=== PATIENT | male | born 1935 | race Caucasian/White ===

== ENCOUNTER 2016-08-23 16:51 | Emergency (ER) | payer OTHER ==
--- NOTE | 2016-08-23 18:15 | DIAGNOSTIC IMAGING REPORT ---
PROCEDURE: XR CHEST 2 VIEW INDICATION: COUGH TECHNIQUE: PA and lateral view. COMPARISON: Chest x-ray 12/01/2015. FINDINGS: There are mild bilateral interstitial markings which have marked improved but are more confluent in the left base, possibly a superimposed infiltrate. Cardiovascular structures are normal. Bony thorax is unremarkable. IMPRESSION: 1. Mild bilateral parenchymal scarring, more confluent in the left base, which could represent a superimposed infiltrate.
--- NOTE | 2016-08-23 18:45 | ED ORDER SUMMARY ---
..... Patient: GAETANO WARD OrderSheet [facility] VisitID: [id number] [place] [address] 80y, M Registration Date/Time: 08/23/2016 ORDER SHEET Weight: 63.7 kg (stated) Allergies: Amoxicillin, Sulfa Antibiotics GENERAL ORDERS: Chest 2V Urgent (17:40 08/23/2016 DDean R.N. per protocol) (Ack 17:41 Saida) (18:15 DDean R.N.) CBC w Diff Urgent (18:39 08/23/2016 Brijesh CHRIS) (Ack 18:43 Saida) (19:07 DDean R.N.) MEDICATION ORDERS: IV FLUIDS: IV Saline Lock (18:15 08/23/2016 DDean R.N. per protocol) (18:16 DDean R.N.) ORDER SHEET NOTES: [Electronically signed by Simona Richard R.N. (19:17 08/23/2016)] [Electronically signed by Shannen Gutierrez MD (21:56 08/23/2016)] [Electronically locked/signed by Simona Richard R.N. (19:17 08/23/2016)]
--- NOTE | 2016-08-23 18:45 | ED ORDER SUMMARY ---
..... Patient: GAETANO WARD OrderSheet [facility] VisitID: [id number] [place] [address] 80y, M Registration Date/Time: 08/23/2016 ORDER SHEET Weight: 63.7 kg (stated) Allergies: Amoxicillin, Sulfa Antibiotics GENERAL ORDERS: Chest 2V Urgent (17:40 08/23/2016 DDean R.N. per protocol) (Ack 17:41 Saida) (18:15 DDean R.N.) CBC w Diff Urgent (18:39 08/23/2016 Brijesh CHRIS) (Ack 18:43 Saida) (19:07 DDean R.N.) MEDICATION ORDERS: IV FLUIDS: IV Saline Lock (18:15 08/23/2016 DDean R.N. per protocol) (18:16 DDean R.N.) ORDER SHEET NOTES: [Electronically signed by Simona Richard R.N. (19:17 08/23/2016)] [Electronically signed by Shannen Gutierrez MD (21:56 08/23/2016)] [Electronically locked/signed by Simona Richard R.N. (19:17 08/23/2016)]
--- NOTE | 2016-08-23 18:45 | ED NURSING NOTES ---
Clinical Report - Nurses [facility] [address] [place] [address] 08/23/2016 16:54 Patient: GAETANO WARD TRIAGE Triage time 1703. Acuity: LEVEL 3. Chief Complaint: SHORTNESS OF BREATH and (states he has chronic breathing issues, has been on antibiotics x 3 days, but feels like it is). --17:24 Simona Richard R.N. 17:17 08/23/16. BP: 106/68. HR: 91. RR: 24. O2 saturation: 95% on room air. Temp: 98.7 F. Pain level now: 10/30. --17:24 Simona Richard R.N. Weight: 63.7 kg stated. Height/Length: 72 inches Per Patient. BMI: 19.1. --17:23 Simona Richard R.N. Medications Aricept Oral 5 mg, daily. --17:18 Simona Richard R.N. Aspirin Oral (Tablet 81 mg) 1 tablet, daily. Carafate Oral 1 gm, 4x a day. Minocycline Hcl Oral (Capsule 100 mg) 1 capsule, bid. Mirapex Oral 0.25 mg, at bedtime. Nitroglycerin Translingual, as needed. Nuvigil Oral (Tablet 150 mg) 1 tablet. Paxil Oral 20 mg, at bedtime. Potassium Oral 20meq, daily. Protonix Oral 40 mg, daily. Simvastatin Oral (Tablet 40 mg) 1 tablet, daily. --17:18 Simona Richard R.N. Azithromax on 3rd day of meds . --17:18 Simona Richard R.N. Lisinopril Oral, daily. --17:24 Simona Richard R.N. The following entry was struck and corrected by Simona Richard R.N., 17:24 (08/23/16) Reason for correction - other(correction). <<STRICKEN ENTRY-- Aricept Oral 5 mg, daily. --17:18 Simona Richard R.N. --END STRIKE>> The following entry was struck by Simona Richard R.N., 17:24 (08/23/16) Reason - wrong value. <<STRICKEN ENTRY-- Lipitor Oral, daily. --17:18 Simona Richard R.N. --END STRIKE>>. Allergies Amoxicillin. Sulfa Antibiotics. --17:18 Simona Richard R.N. History Arrived by private vehicle. Historian: patient. Accompanied by spouse. Primary physician (Eh). The patient has had a cough, wheezing and chest pain. SOCIAL HX: Smoker- current status unknown (quit 45 years ago , was a 1ppd smoker for 10+ years). No alcohol use or drug use. --17:24 Simona Richard R.N. PROBLEMS: Near Syncope. Diffuse Lewy body disease. Restless Legs Syndrome. Myocardial Infarction. MRSA Infection. Chronic bronchitis. --17:19 Simona Richard R.N. ADDITIONAL SURGERIES: Appendectomy. Cardiac Catheterization. Tonsillectomy. --17:19 Simona Richard R.N. Interventions ID band on patient. To treatment room. --17:24 Simona Richard R.N. PHYSICAL ASSESSMENT 17:15. Ambulatory to room. Patient gowned. GENERAL / NEURO / PSYCH: Alert. Oriented X 4. Appears anxious. RESPIRATORY: Moderate respiratory distress. The patient can speak in full sentences. Cough productive of thick, yellow sputum. Chest wall tenderness. CVS: Capillary refill less than 2 seconds. GI / : Abdomen soft. SKIN: Skin is warm and dry. --17:26 Simona Richard R.N. NURSING PROGRESS NOTES 17:03. Patient gowned. Head of bed elevated. Reassurance given. Patient identifiers checked. Call light placed in reach. Side rails up. Bed placed in lowest position. Patient ready for evaluation- chart flagged. --17:25 Simoan Richard R.N. 17:47 08/23/16. Patient transported to radiology by stretcher with tech. --17:47 Simona Richard R.N. 17:50 08/23/2016 Site #1 started via IV in the left forearm with an 20g angiocath, with aseptic technique and good blood return; one attempt. Blood drawn: rainbow set and cultures x1. Labeled in the presence of the patient and sent to the lab. Saline lock flushed with 10 mL saline. --18:13 Simona Richard R.N. 17:52. Patient returned from radiology by stretcher with tech. --18:15 Simona Richard R.N. 17:55. ( IV start, lab drawn,. resting quietly with at bedside.). --19:06 Simona Richard R.N. 18:30 given warm blanket, waiting on lab results. --19:06 Simona Richard R.N. 18:45 08/23/2016 Site #1 removed upon discharge. Bandaid applied. --19:08 Simona Richard R.N. 18:45 08/23/2016 IV Saline Lock Drip IV Discontinued: bag #1 STOPPED upon discharge. Total amount infused: 0 mL. IV patency established. IV site checked: no pain, redness, or swelling. IV flushed thoroughly. --19:08 Simona Richard R.N. DISPOSITION / DISCHARGE 18:56. Condition at departure: improved and stable. No learning barriers present. Discharge instructions provided and reviewed with the patient and spouse. Patient and spouse verbalized understanding. Written instructions provided in Thai. The patient was discharged home and accompanied by spouse. He left the Emergency Department ambulatory and via private vehicle. Spouse driving. --19:03 Simona Richard R.N. 19:01 08/23/16. BP: 103/53. HR: 75. RR: 18. O2 saturation: 98% on room air. Temp: deferred. Pain level now: 06/30. --19:03 Simona Richard R.N. Locked/Released at 08/23/2016 19:17 by Simona Richard R.N.
--- NOTE | 2016-08-23 18:45 | ED CLINICAL REPORT ---
Clinical Report - Physicians/Mid Levels [facility] [address] [place] [address] 08/23/2016 16:54 Patient: GAETANO WARD Time Seen: 17:09. Arrived- By private vehicle. Historian- patient. HISTORY OF PRESENT ILLNESS Chief Complaint: CHEST DISCOMFORT. Cough. At its maximum, severity described as mild. When seen in the E.D., it was almost gone. Modifying factors- worsened by cough and deep breaths. Not relieved by anything. This started several days ago and is still present. Onset during coughing. It is described as tightness and it is described as located in the central chest area. No nausea, vomiting, difficulty breathing or diaphoresis. Similar symptoms previously: Recent medical care: The patient was seen recently at another facility in a clinic. ( Patient was started on Zithromax 3 days ago; however he does not feel that he is improved much since.). REVIEW OF SYSTEMS No fever, chills, pedal edema, calf pain or fainting episodes. No headache, sore throat, blurred vision, abdominal pain or black stools. No difficulty with urination, skin rash, enlarged lymph nodes, joint pain or bloody stools. The patient has had a cough. All systems otherwise negative, except as recorded above. PAST HISTORY Problems: Near Syncope. Diffuse Lewy body disease. Restless Legs Syndrome. Myocardial Infarction. MRSA Infection. Chronic bronchitis. Additional Surgeries: Appendectomy. Cardiac Catheterization. Tonsillectomy. Medications: Lisinopril Oral, daily. Azithromax on 3rd day of meds . Aspirin Oral (Tablet 81 mg) 1 tablet, daily. Carafate Oral 1 gm, 4x a day. Minocycline Hcl Oral (Capsule 100 mg) 1 capsule, bid. Mirapex Oral 0.25 mg, at bedtime. Nitroglycerin Translingual, as needed. Nuvigil Oral (Tablet 150 mg) 1 tablet. Paxil Oral 20 mg, at bedtime. Potassium Oral 20meq, daily. Protonix Oral 40 mg, daily. Simvastatin Oral (Tablet 40 mg) 1 tablet, daily. Aricept Oral 5 mg, daily. Allergies: Amoxicillin. Sulfa Antibiotics. SOCIAL HISTORY Former smoker. No alcohol use or drug use. ADDITIONAL NOTES The nursing notes have been reviewed. PHYSICAL EXAM Vital Signs: 08/23/2016 17:17 BP: 106/68. HR: 91. RR: 24. O2 saturation: 95%. Temp: 98.7 F. Pain level now: 7/10. Have been reviewed. Appearance: Alert. No acute distress. (Patient answers questions appropriately.). Eyes: Pupils equal, round and reactive to light. Eyes normal inspection. ENT: Nose normal. Neck: Normal inspection. CVS: Normal heart rate and rhythm. Heart sounds normal. Pulses normal. Respiratory: No respiratory distress. Breath sounds normal. Abdomen: Soft and nontender. Back: Normal external inspection. Skin: Skin warm and dry. Normal skin color. No rash. Normal skin turgor. Extremities: Extremities exhibit normal ROM. No lower extremity edema. Neuro: No motor deficit. No sensory deficit. (Patient is grossly oriented.). LABS, X-RAYS, AND EKG Chest X-ray: No acute disease. Normal lung markings present. Normal heart size. Mediastinum normal. Great vessels normal. Soft tissues normal. No infiltrate. No fracture. No bony lesion present. Views: PA and lateral. Technique: good. The X-rays were independently viewed by me and interpreted contemporaneously by me. Prior films were not available for comparison. Pulse Oximetry: 08/23/2016 17:17 O2 saturation: 95%. (FIO2 - room air). Interpretation: normal. PROGRESS AND PROCEDURES Course of Care: Patient was worked up at the chest x-ray which was unremarkable for any acute pathology. I did discuss with the patient that he has only been through half of his antibiotic course and that he most likely needs more time on the antibiotics. Patient's has requested a prescription for cough suppressant and I will give the patient this as well. No emergent condition has been identified. Patient and spouse counseled in person regarding the patient's stable condition, test results, diagnosis and need for follow-up. Concerns were addressed. Old medical records reviewed. Disposition: Discharged. Condition: stable and improved. CLINICAL IMPRESSION Acute bacterial bronchitis associated with chronic obstructive pulmonary disease. Stable COPD. INSTRUCTIONS Warnings: GENERAL WARNINGS: Return or contact your physician immediately if your condition worsens or changes unexpectedly, if not improving as expected, or if other problems arise. Your Current Medications: CONTINUE TAKING THE FOLLOWING MEDICATIONS: Aricept Oral : 5 mg daily. Aspirin Oral : Tablet 81 mg, 1 tablet daily. Azithromax on 3rd day of meds *. Carafate Oral : 1 gm 4x a day. Lisinopril Oral : daily. Minocycline Hcl Oral : Capsule 100 mg, 1 capsule bid. Mirapex Oral : 0.25 mg at bedtime. Nitroglycerin Translingual : prn. Nuvigil Oral : Tablet 150 mg, 1 tablet. Paxil Oral : 20 mg at bedtime. Potassium Oral : 20meq daily. Protonix Oral : 40 mg daily. Simvastatin Oral : Tablet 40 mg, 1 tablet daily. Prescription Medications: Robitussin A-C cough syrup take ten (10) mL orally every 8 hours as needed for cough. Dispense one hundred twenty (120) mL. No refill. Substitution is permissible. Nystatin Topical Cream: apply to affected areas twice daily as needed for itching or rash. Dispense sixty (60) grams. Two refills. Follow-up: Follow up with your doctor in seven days if not better. Understanding of the discharge instructions verbalized by patient. (Electronically signed by Shannen Gutierrez MD 08/23/2016 21:56)
--- NOTE | 2016-08-23 21:57 | ED MAR SUMMARY ---
..... Medication Administration Record [facility] [address], [place] [id number] Patient: GAETANO WARD Visit ID: [id number] 80y, M Weight: 63.7 kg Height/Length: 72 in BMI: 19.1 ALLERGIES: Amoxicillin, Sulfa Antibiotics
--- NOTE | 2016-08-23 21:57 | ED MAR SUMMARY ---
..... Medication Administration Record [facility] [address] [place], [place] [id number] Patient: GAETANO WARD Visit ID: [id number] 80y, M Weight: 63.7 kg Height/Length: 72 in BMI: 19.1 ALLERGIES: Amoxicillin, Sulfa Antibiotics
--- NOTE | 2016-08-23 21:57 | ED MED RECONCILIATION SUMMARY ---
Patient: GAETANO WARD Medication Reconciliation Report [facility] VisitID: [id number] [place] [address] 80y, M Registration Date/Time: 08/23/2016 Weight: 63.7 kg Height/Length: 72 in. BMI: 19.1 ALLERGIES: Amoxicillin, Sulfa Antibiotics The patient's Home Medications are listed below: CONTINUE TAKING THE FOLLOWING MEDICATIONS: Aricept Oral 5 mg, daily Aspirin Oral (81 mg) 1 tablet, daily Azithromax on 3rd day of meds Carafate Oral 1 gm, 4x a day Lisinopril Oral, daily Minocycline Hcl Oral (100 mg) 1 capsule, bid Mirapex Oral 0.25 mg, at bedtime Nitroglycerin Translingual Nuvigil Oral (150 mg) 1 tablet Paxil Oral 20 mg, at bedtime Potassium Oral 20meq, daily Protonix Oral 40 mg, daily Simvastatin Oral (40 mg) 1 tablet, daily The source(s) of the original Home Medication information: Not obtained. The following Medications were given to the patient in the Emergency Department: None. The following Medications were prescribed to the patient: Robitussin A-C cough syrup take ten (10) mL orally every 8 hours as needed for cough. Dispense one hundred twenty (120) mL. No refill. Substitution is permissible. -- Shannen Gutierrez MD Nystatin Topical Cream: apply to affected areas twice daily as needed for itching or rash. Dispense sixty (60) grams. Two refills. -- Shannen Gutierrez MD
--- NOTE | 2016-08-23 21:57 | ED MED RECONCILIATION SUMMARY ---
Patient: GAETANO WARD Medication Reconciliation Report [facility] VisitID: [id number] [place] [address] 80y, M Registration Date/Time: 08/23/2016 Weight: 63.7 kg Height/Length: 72 in. BMI: 19.1 ALLERGIES: Amoxicillin, Sulfa Antibiotics The patient's Home Medications are listed below: CONTINUE TAKING THE FOLLOWING MEDICATIONS: Aricept Oral 5 mg, daily Aspirin Oral (81 mg) 1 tablet, daily Azithromax on 3rd day of meds Carafate Oral 1 gm, 4x a day Lisinopril Oral, daily Minocycline Hcl Oral (100 mg) 1 capsule, bid Mirapex Oral 0.25 mg, at bedtime Nitroglycerin Translingual Nuvigil Oral (150 mg) 1 tablet Paxil Oral 20 mg, at bedtime Potassium Oral 20meq, daily Protonix Oral 40 mg, daily Simvastatin Oral (40 mg) 1 tablet, daily The source(s) of the original Home Medication information: Not obtained. The following Medications were given to the patient in the Emergency Department: None. The following Medications were prescribed to the patient: Robitussin A-C cough syrup take ten (10) mL orally every 8 hours as needed for cough. Dispense one hundred twenty (120) mL. No refill. Substitution is permissible. -- Shannen Gutierrez MD Nystatin Topical Cream: apply to affected areas twice daily as needed for itching or rash. Dispense sixty (60) grams. Two refills. -- Shannen Gutierrez MD
--- NOTE | 2016-08-23 21:57 | ED DISCHARGE INSTRUCTIONS ---
Patient: GAETANO WARD General Instructions [facility] VisitID: [id number] [place] [address] 80y, M Registration Date/Time: 08/23/2016 Acute bacterial bronchitis associated with chronic obstructive pulmonary disease. Stable COPD. INSTRUCTIONS Warnings: GENERAL WARNINGS: Return or contact your physician immediately if your condition worsens or changes unexpectedly, if not improving as expected, or if other problems arise. Your Current Medications: CONTINUE TAKING THE FOLLOWING MEDICATIONS: Aricept Oral : 5 mg daily. Aspirin Oral : Tablet 81 mg, 1 tablet daily. Azithromax on 3rd day of meds *. Carafate Oral : 1 gm 4x a day. Lisinopril Oral : daily. Minocycline Hcl Oral : Capsule 100 mg, 1 capsule bid. Mirapex Oral : 0.25 mg at bedtime. Nitroglycerin Translingual : prn. Nuvigil Oral : Tablet 150 mg, 1 tablet. Paxil Oral : 20 mg at bedtime. Potassium Oral : 20meq daily. Protonix Oral : 40 mg daily. Simvastatin Oral : Tablet 40 mg, 1 tablet daily. Prescription Medications: Robitussin A-C cough syrup take ten (10) mL orally every 8 hours as needed for cough. Dispense one hundred twenty (120) mL. No refill. Substitution is permissible. Nystatin Topical Cream: apply to affected areas twice daily as needed for itching or rash. Dispense sixty (60) grams. Two refills. Follow-up: Follow up with your doctor in seven days if not better. Understanding of the discharge instructions verbalized by patient. ADDITIONAL INFORMATION Bronchitis (Adult: Abx Tx) BRONCHITIS is an infection of the air passages (bronchial tubes). It often occurs during the common cold. Symptoms include cough with mucus (phlegm) and low-grade fever. Bronchitis usually lasts 7-14 days. Mild cases can be treated with simple home remedies. More severe infection is treated with an antibiotic. Home Care: If symptoms are severe, rest at home for the first 2-3 days. When you resume activity, don't let yourself get too tired. Do not smoke. Avoid being exposed to the smoke of others. You may use acetaminophen (Tylenol) or ibuprofen (Motrin, Advil) to control fever or pain, unless another medicine was prescribed for this. [NOTE: If you have chronic liver or kidney disease or ever had a stomach ulcer or GI bleeding, talk with your doctor before using these medicines.] Your appetite may be poor, so a light diet is fine. Avoid dehydration by drinking 6-8 glasses of fluids per day (water, soft, drinks, juices, tea, soup, etc.). Extra fluids will help loosen secretions in the lungs. Youm-[id number] cough medicines that containdextromethorphan(such as Robitussin DM) and decongestants (Actifed or Sudafed) may help relieve cough and congestion. [NOTE: Do not use decongestants if you have high blood pressure.] Finish all antibiotic medicine, even if you are feeling better after only a few days. Follow Up with your doctor or as directed if you dont start to feel better after three days. [NOTE: If you are age 65 or older, or if you have chronic asthma or COPD, we recommend a PNEUMOCOCCAL VACCINATION every five years and a yearly INFLUENZAVACCINATION (FLU-SHOT) every . Ask your doctor about this. If you had an X-ray, a radiologist will review it. You will be notified of any new findings that may affect your care.] Get Prompt Medical Attention if any of the following occur: Fever over 100.4F (38.0C) for more than three days Trouble breathing, wheezing or pain with breathing Coughing up blood or increased amounts of colored sputum Weakness, drowsiness, headache, facial pain, ear pain or a stiff neck You have been given the following additional information: Bronchitis, Antiobiotic Treatment (Adult) (Electronically signed by Shannen Gutierrez MD 08/23/2016 21:56)
== END 2016-08-23 18:56 | disposition home or self-care (01) ==
LOC: ED SRH 16:51
DX: J44.0 Chronic obstructive pulmonary disease with (acute) lower respiratory infection (principal); I10 Essential (primary) hypertension; I25.2 Old myocardial infarction; Z79.82 Long term (current) use of aspirin; Z79.899 Other long term (current) drug therapy; Z87.891 Personal history of nicotine dependence; Z88.1 Allergy status to other antibiotic agents
CPT/HCPCS: 95059